=== PATIENT | female | born 1980 | race Caucasian/White ===

== ENCOUNTER 2017-07-23 08:27 | Day surgery (SDC) | payer OTHER ==
[~2017-07-23] VITALS: Ht 160 cm; Wt 59.0 kg
[2017-07-23 13:20] VITALS: BP 97/64
== END 2017-07-23 12:15 | disposition home or self-care (01) ==
LOC: GI 08:27 → OR 10:30 → GI 10:30
PROVIDERS: Internal Medicine Gastroenterology
PROC: 0DB58ZX Excision of Esophagus, Via Natural or Artificial Opening Endoscopic, Diagnostic (ICD-10-PCS; principal; 2017-07-23 09:30)
PROC: 0DB68ZX Excision of Stomach, Via Natural or Artificial Opening Endoscopic, Diagnostic (ICD-10-PCS; 2017-07-23 09:30)
DX: R10.13 Epigastric pain (principal); K21.9 Gastro-esophageal reflux disease without esophagitis
CPT/HCPCS: 43235; J1200; J1610; J2250; J2310; J3010; J3490